=== PATIENT | male | born 1945 | race Caucasian/White ===

== ENCOUNTER → 2017-02-15 | Outpatient (REF) | payer MEDICARE ==
[~2017-02-15] MED LIST: ACTO15TA OR; ALBUTEROL INH; FLON0.05; GLIM1TAB OR; GLUC1000 OR; LEVA500T OR; MICA80TA OR; NIAS10003 OR; SIMV10TA2 OR; azelastine; drisdol; drisdol PO; testosterone
== END ==
LOC: M SFHCLERA 08:35
PROVIDERS: ATTEND Family Medicine
DX: E11.9 Type 2 diabetes mellitus without complications (principal); Z53.8 Procedure and treatment not carried out for other reasons

== ENCOUNTER → 2017-07-18 | Outpatient (REF) | payer MEDICARE | LOC: M SFHCLERA 14:12 | PROVIDERS: ATTEND Family Medicine | DX: R39.9 Unspecified symptoms and signs involving the genitourinary system (principal); N40.1 Benign prostatic hyperplasia with lower urinary tract symptoms; Z12.11 Encounter for screening for malignant neoplasm of colon; E11.9 Type 2 diabetes mellitus without complications; F17.201 Nicotine dependence, unspecified, in remission; E78.5 Hyperlipidemia, unspecified; M79.672 Pain in left foot; H57.8 Other specified disorders of eye and adnexa; G47.34 Idiopathic sleep related nonobstructive alveolar hypoventilation; Z23 Encounter for immunization | CPT/HCPCS: 84153; 90471; 90670; G0463 ==

== ENCOUNTER → 2017-07-31 | Outpatient (CLI) | payer MEDICARE ==
--- NOTE | 2017-07-31 09:21 | REP ---
Abdominal aortic sonography: History: Abdominal aortic aneurysm screen. Tobacco use. Findings: Scanning at the level of the diaphragmatic hiatus shows that the aorta in this segment is obscured from view. At the level of main renal arteries, the aorta is normal in caliber measuring 1.6 cm AP x 1.9 cm transverse. There is no evidence of abdominal aortic aneurysm. Mid aorta dimensions are 1.6 x 1.9 as well. The distal aorta tapers to 1.3 x 1.2 cm in AP by transverse dimension respectively. The right and left common iliac arteries are normal measuring 0.7 cm on the right and 0.8 cm on the left in AP dimension. No periaortic disease is seen. Impression: No evidence of abdominal aortic aneurysm. Signed by Bonifacio Avila MD 07/31/2017 04:15 P
== END ==
LOC: M RAD 06:06
PROVIDERS: ATTEND Family Medicine
DX: F17.201 Nicotine dependence, unspecified, in remission (principal)

== ENCOUNTER → 2017-11-15 | Outpatient (REF) | payer MEDICARE ==
[2017-11-15 17:46] LABS: ESTIMATED AVERAGE GLUCOSE 148 MG/DL (60-110); HEMOGLOBIN A1c 6.8 %
== END ==
LOC: M SFHCLERA 16:22
DX: E11.9 Type 2 diabetes mellitus without complications (principal)
CPT/HCPCS: 83036

== ENCOUNTER → 2018-08-20 | Outpatient (REF) | payer MEDICARE ==
[2018-08-20 17:30] LABS: ALBUMIN 4.1 GM/DL (3.2-5.2); ALT/SGPT 26 U/L (12-78); BILIRUBIN,TOTAL 0.4 MG/DL (0.2-1.0); BLOOD UREA NITROGEN 15 MG/DL (7-18); CALCIUM LEVEL 9.2 MG/DL (8.8-10.2); CARBON DIOXIDE LEVEL 28 MEQ/L (21-32); CHLORIDE LEVEL 104 MEQ/L (98-107); CHOLESTEROL LEVEL 112 MG/DL (<200); CREATININE FOR GFR 0.96 MG/DL (0.70-1.30); GLOMERULAR FILTRATION RATE > 60.0 (>42); GLUCOSE, FASTING 134 MG/DL (70-100); HDL CHOLESTEROL 50 MG/DL (>40); LDL CHOLESTEROL 27 MG/DL (<100); NON-HDL-C 62 MG/DL; POTASSIUM SERUM 5.2 MEQ/L (3.5-5.1); SODIUM LEVEL 139 MEQ/L (136-145); TOTAL PROTEIN 7.5 GM/DL (6.4-8.2); TRIGLYCERIDES LEVEL 173 MG/DL (<150)
[2018-08-20 17:58] LABS: HEMOGLOBIN A1c 7.5 %
[2018-08-20 18:03] LABS: CREATININE, URINE 76.7 MG/DL; MALB URINE SIEMENS 13.8 MG/L; MAU/CREAT RATIO 17.9 MCG/MG (0.0-30.0)
== END ==
LOC: M SFHCLERA 11:20
PROVIDERS: ATTEND Family Medicine
DX: E11.9 Type 2 diabetes mellitus without complications (principal)
CPT/HCPCS: 80053; 80061; 82043; 83036; 90732; G0009; G0463

== ENCOUNTER → 2018-10-22 | Outpatient (REF) | payer MEDICARE ==
[~2018-10-22] MED LIST changes: +ATOR1TAB21 PO; +FLOM0.4C39 PO; +GLIM4TAB PO; +METF10004 PO
[2018-10-22 15:03] LABS: HEMOGLOBIN A1c 6.6 %
== END ==
LOC: M LABDRAW1 13:01
PROVIDERS: ATTEND Family Medicine
DX: E11.9 Type 2 diabetes mellitus without complications (principal)

== ENCOUNTER → 2018-10-31 | Outpatient (CLI) | payer MEDICARE ==
--- NOTE | 2018-10-31 10:29 | REP ---
Clinical: Preoperative assessment for arthroplasty . Comparison: 08/31/2013 . Technique: PA and lateral. Findings: The mediastinum and cardiac silhouette are normal. The lung mcnally are clear and without acute consolidation, effusion, or pneumothorax. The skeletal structures are intact and normal. Impression: 1. No acute cardiopulmonary process. Electronically Signed by Miguel Ángel Au MD 10/31/2018 10:21 A
== END ==
LOC: M RAD 09:59
PROVIDERS: ATTEND Family Medicine
DX: Z01.818 Encounter for other preprocedural examination (principal); M17.12 Unilateral primary osteoarthritis, left knee

== ENCOUNTER → 2018-10-31 | Outpatient (REF) | payer MEDICARE ==
[2018-10-31 16:22] LABS: HEMATOCRIT 44.4 % (42.0-52.0); HEMOGLOBIN 14.9 g/dl (13.5-17.5); MEAN CORPUSCULAR HEMOGLOBIN 33.9 pg (27.0-33.0); MEAN CORPUSCULAR HGB CONC 33.6 g/dl (32.0-36.5); MEAN CORPUSCULAR VOLUME 101.1 fl (80.0-96.0); PLATELET COUNT, AUTOMATED 334 10^3/uL (150-450); RED BLOOD COUNT 4.39 10^6/uL (4.30-6.10); WHITE BLOOD COUNT 6.4 10^3/uL (4.0-10.0)
[2018-10-31 16:26] LABS: ALT/SGPT 25 U/L (12-78); BILIRUBIN,TOTAL 0.3 MG/DL (0.2-1.0); BLOOD UREA NITROGEN 13 MG/DL (7-18); CALCIUM LEVEL 9.3 MG/DL (8.8-10.2); CARBON DIOXIDE LEVEL 27 MEQ/L (21-32); CHLORIDE LEVEL 107 MEQ/L (98-107); CREATININE FOR GFR 0.92 MG/DL (0.70-1.30); GLOMERULAR FILTRATION RATE > 60.0 (>42); GLUCOSE, FASTING 231 MG/DL (70-100); POTASSIUM SERUM 4.8 MEQ/L (3.5-5.1); SODIUM LEVEL 141 MEQ/L (136-145)
[2018-10-31 16:50] LABS: ERYTHROCYTE SEDIMENTATION RATE 3 mm/hr (0-20)
== END ==
LOC: M LABDRAW1 15:54
PROVIDERS: ATTEND Physician Assistant
DX: Z01.818 Encounter for other preprocedural examination (principal); M17.12 Unilateral primary osteoarthritis, left knee

== ENCOUNTER 2018-11-04 06:45 | Inpatient (IN) | payer MEDICARE ==
--- NOTE | 2018-10-31 15:10 | HPE ---
DATE OF ADMISSION: 11/04/2018 HISTORY OF PRESENT ILLNESS: This is a pleasant 72-year-old male with continuing symptomatic left knee osteoarthritis. He has consented for a left total knee arthroplasty per Dr. Kelvin sanford. Medical optimization per Dr. Keating, which is per patient I am still awaiting clearance note. I did see cardiology medical clearance via Dr. Trujillo on 09/26/2018. ALLERGIES: None known to drugs. MEDICATIONS: Include: - aspirin 81 mg tablet delayed release one by mouth daily - atorvastatin calcium 20 mg oral tablet one by mouth daily - glimepiride 4 mg tablet one by mouth daily - metformin HCl 1000 mg oral tablet by mouth twice a day - tamsulosin HCl 0.4 mg oral capsule one by mouth daily - telmisartan 40 mg oral tablet one by mouth daily MEDICAL PROBLEM LIST: 1. Symptomatic left knee osteoarthritis. 2. Chronic obstructive pulmonary disease (COPD). 3. Hyperlipidemia. 4. Type 2 diabetes. PAST SURGICAL HISTORY: 1. Bilateral shoulders. 2. Discectomy L4-5. 3. Bilateral knee arthroscopy. SOCIAL HISTORY: He has never smoked. Denies alcohol use or illicit drugs. FAMILY HISTORY: Positive for non-insulin diabetes, hypercholesteremia, hypertension, heart disease. REVIEW OF SYSTEMS: Denies chest pain, shortness of breath, dyspnea on exertion, fever, chills, malaise, upper respiratory or urinary tract symptoms. PHYSICAL EXAMINATION: VITAL SIGNS: Blood pressure 130/78, pulse 58, temperature 96.4, height 68, weight 176 and 4 ounces, body mass index (BMI) 26.8, respirations 14. I still do not have access to his laboratory work. I was able to see Dr. Trujillo's review of ECG on 09/25/2018. Normal ECG, normal sinus rhythm with a rate of 98 beats per minute as read by himself. He did mention some laboratory work including glucose 133, blood urea nitrogen (BUN) 15, creatinine 1.0, potassium 5.2, A1c 7.5%, cholesterol 112, HDL 50, LDL 27, triglycerides 173, all laboratories were as of 08/20/2018. PHYSICAL EXAMINATION: He is a pleasant white male in no acute distress, alert and oriented times three. Mood and affect are appropriate. He is ambulating without overt antalgia, assistance or favoring. His left knee is not grossly effused, ecchymotic or erythematous. Benign, noninfectious-looking, not hot to touch. Positive medial joint line tenderness to palpation, crepitance through flexion/extension. Range of motion 0 past 100. Patellofemoral joint (PFJ) congruent, static and dynamic. Negative popliteal fossa, mass or pain. Normocephalic. NECK: Supple. Negative jugular venous distention (JVD) or bruits. LUNGS: Clear to auscultation. CHEST: Regular rate and rhythm. Bowel sounds times four, soft, nontender. Bilateral lower extremity skin intact. Benign, noninfectious-looking, not hot to touch. IMPRESSION: 1. Symptomatic left knee osteoarthritis. 2. The patient consented for a left total knee arthroplasty per Dr. Kelvin Sanford. 3. Medical optimization said to be completed with clearance per Dr. Keating which I am still awaiting the note. I did see Dr. Trujillo's cardiac clearance. 4. On-call to operating room (OR) 2 grams IV Kefzol in OR. 5. Sequential compression device (SCD) and thromboembolic-deterrent stockings (TEDS) in OR. 6. Awaiting results of EKG in addition to any remaining necessary laboratories. MTDD
[2018-11-04] VITALS (7 sets, daily range): BP systolic 132–167; BP diastolic 68–94
[~2018-11-04] VITALS: Ht 170.2 cm; Wt 76.0 kg
[~2018-11-04 06:45] MED LIST changes: +BUPIVACAINE LIPOSOME/PF 1.3% 20ML VIAL (13.3MG/ML)(EXPAREL)(C9290 PER1MG) As Ordered ONE; +EPINEPHrine INJ 1 MG/ML 1ML AMP As Ordered ONE; +TRANEXAMIC ACID 100 MG/ML 10ML VIAL As Ordered ONE; +ceFAZolin 1GM INJ (J0690 PER 500MG) As Ordered ONE
[2018-11-04] MEDS ORDERED: LR 1,000 ML IV SCH ×2 (07:00→12:00)
[2018-11-04 07:30] LABS: INR 0.93; PROTHROMBIN TIME 12.6 SECONDS (12.1-14.4)
[2018-11-04 07:37] LABS: GLUCOSE, FASTING 181 MG/DL (70-100)
--- NOTE | 2018-11-04 08:01 | IPN ---
DATE: 11/04/2018 Patient seen and examined. He wished to go ahead with a left total knee arthroplasty. He understands the nature of the risks associated with procedure including, but not limited to, bleeding, infection, damage to nerves, vessels, persistent pain, wear loosening, blood clots, medical problems, among others. A preop clearance was obtained.
[2018-11-04] MEDS ORDERED: fentaNYL 100 MCG/2 ML INJECTION (J3010) As Ordered ONE (08:12)
[2018-11-04] MEDS ORDERED: MIDAZOLAM INJ 2 MG/2 ML VIAL (J2250) As Ordered ONE ×2 (08:12→09:07)
[2018-11-04] MEDS: fentaNYL 100 MCG/2 ML INJECTION (J3010) IV SCH ×2 (08:25→08:30)
[2018-11-04] MEDS: MIDAZOLAM INJ 2 MG/2 ML VIAL (J2250) IV SCH ×2 (08:25→08:30)
[2018-11-04] MEDS: TELMISARTAN 20 MG TAB PO SCH (09:00)
[2018-11-04] MEDS: SENOKOT S TAB PO SCH ×2 (09:00→20:46)
[2018-11-04] MEDS ORDERED: PHENYLEPHRINE INJ 10MG/ML VIAL (J2370) As Ordered ONE (09:07)
[2018-11-04] MEDS ORDERED: PROPOFOL 200 MG/20 ML VIAL As Ordered ONE ×2 (09:07→10:10)
[2018-11-04] MEDS ORDERED: ROPIvacaine 0.5% 30 ML INJECTION (J2795 PER 1MG) ONE (09:09)
[2018-11-04] MEDS ORDERED: LIDOCAINE 1% MDV 20ML VIAL ONE (09:09)
[2018-11-04] MEDS ORDERED: EPINEPHrine 1MG/ML INJ 30ML MD-VIAL ONE (09:09)
[2018-11-04] MEDS ORDERED: dexameTHASONE 10 MG/1 ML VIAL PRES.FREE (J1100) ONE (09:09)
--- NOTE | 2018-11-04 11:44 | REP ---
Left knee two views: There is a total hip arthroplasty with the components tightly applied and in satisfactory positions alignment. Skin dom and intra-articular air identified as a postsurgical change. Electronically Signed by Marco A Rios MD 11/04/2018 11:36 A
[2018-11-04] MEDS ORDERED: ACETAMINOPHEN TAB 650MG DOSE (2X325MG) PO PRN (11:45)
[2018-11-04] MEDS ORDERED: FLEET ENEMA PR PRN (11:45)
[2018-11-04] MEDS ORDERED: MORPHINE 4 MG/ML 1ML VIAL/SYRINGE (J2270) IV PRN ×2 (11:45)
[2018-11-04] MEDS ORDERED: PERCOCET 5MG/325MG TAB PO PRN ×3 (12:00→17:15)
[2018-11-04] MEDS: HumaLOG INSULIN (NovoLOG) PER UNIT SC SCH ×2 (12:00→16:56)
[2018-11-04] MEDS ORDERED: GLUCOSE 4 GM CHEW TABLET PO PRN (12:00)
[2018-11-04] MEDS ORDERED: ONDANSETRON 4MG/2ML VIAL (J2405) IV PRN ×2 (12:00)
[2018-11-04] MEDS ORDERED: fentaNYL 100 MCG/2 ML INJECTION (J3010) IV PRN (12:00)
[2018-11-04] MEDS ORDERED: DEXTROSE 50% 50 ML SYRINGE IV PRN (12:00)
[2018-11-04] MEDS ORDERED: GLUCAGON FOR INJ 1 MG VIAL (J1610) SC PRN (12:00)
[2018-11-04] MEDS ORDERED: MORPHINE 10 MG/ML 1ML VIAL (J2270) IV PRN (12:00)
[2018-11-04 12:25] LABS: HEPATITIS B SURFACE ANTIGEN NEGATIVE (NEGATIVE)
[2018-11-04 12:53] LABS: HEP C VIRUS AB INDEX SOURCE PT < 0.0 INDEX (0.0-0.8)
[2018-11-04] MEDS: LR 1,000 ML IV SCH (13:33)
[2018-11-04] MEDS: TAMSULOSIN 0.4 MG CAP PO SCH (15:01)
--- NOTE | 2018-11-04 16:15 | CR ---
DATE OF CONSULTATION: 11/04/2018 PRIMARY CARE PROVIDER: Dr. Keating REFERRING PHYSICIAN: Dr. Kelvin Garces REASON FOR CONSULTATION: Medical management. CHIEF COMPLAINT: Left knee pain. HISTORY OF THE PRESENT ILLNESS: This is a 73-year-old male patient with underlying medical history of left knee osteoarthritis, questionable chronic obstructive pulmonary disease (COPD), dyslipidemia, type 2 diabetes, hypertension. Patient admitted today under orthopedics for a left total knee replacement. Patient was cleared by Dr. Trujillo for surgery, status post operating room (OR), currently is in post-anesthesia care unit (PACU), comfortable, in no acute distress. Denies smoking. Denies history of sleep apnea. Currently comfortable, in no acute distress. ALLERGIES: No known drug allergies. PAST MEDICAL HISTORY: See above. PAST SURGICAL HISTORY: Bilateral shoulder surgery, L4-L5 discectomy, bilateral knee arthroscopy. SOCIAL HISTORY: The patient never smoked. Denies drinking alcohol or illicit drugs. Currently lives at home with and family. FAMILY HISTORY: Positive for diabetes, dyslipidemia, hypertension, and heart disease. Patient denies a history of heart attack, stroke. REVIEW OF SYSTEMS: Patient currently comfortable. Denies any significant pain. All other review of systems are negative. HOME MEDICATIONS: - Lipitor 20 mg by mouth nightly - glimepiride 4 mg by mouth daily - metformin 1000 mg by mouth twice a day - Flomax 0.4 mg by mouth daily PHYSICAL EXAMINATION: VITAL SIGNS: Temperature 97.3, pulse 79, respirations 16, blood pressure 135/64, pulse oximetry 95% on room air. GENERAL: Patient alert, comfortable, in no acute distress. HEENT: Normocephalic, atraumatic. PULMONARY: Bilaterally clear. CARDIAC: Regular, S1, S2. ABDOMEN: Soft, nontender. Positive bowel sounds. EXTREMITIES: Left knee Gatito wrap in place. Bilateral lower extremities - diminished sensation. Dorsal pedis (DP), posterior tibial (PT) pulses intact. Decreased ability to move status post spinal anesthesia. ASSESSMENT AND PLAN: This is a 73-year-old (dictation cut off) with underlying medical history of hypertension, questionable chronic obstructive pulmonary disease, dyslipidemia, type 2 diabetes, osteoarthritis, admitted under orthopedics for elective left total knee arthroplasty. PROBLEMS: 1. Osteoarthritis, status post elective left knee arthroplasty by Dr. Garces. Pain regimen, perioperative management, deep vein thrombosis (DVT) prophylaxis, bowel regimen as per orthopedics. Patient on Xarelto for DVT prophylaxis. Holding aspirin. 2. Dyslipidemia. Continue statin. 3. BPH. Continue Flomax. 4. Type 2 diabetes. Holding oral medication. Insulin as per protocol. 5. Hypertension. Will monitor blood pressure. Add medication as needed. 6. DVT prophylaxis. Patient on Xarelto as per orthopedics. DISPOSITION: Pending clinical improvement. Further recommendation as per orthopedics.
[2018-11-04] MEDS: PERCOCET 5MG/325MG TAB PO PRN ×2 (18:03→22:31)
[2018-11-04] MEDS ORDERED: ATORVASTATIN 20 MG TAB PO SCH (21:00)
[2018-11-04] MEDS ORDERED: HumaLOG INSULIN (NovoLOG) PER UNIT SC SCH (21:00)
[2018-11-05] MEDS: LR 1,000 ML IV SCH (01:05)
[2018-11-05 02:00] VITALS: BP 130/70
[2018-11-05 06:00] VITALS: BP 152/77
--- NOTE | 2018-11-05 06:28 | RO ---
DATE OF PROCEDURE: 11/04/2018 PREOPERATIVE DIAGNOSIS: Left knee osteoarthritis. POSTOPERATIVE DIAGNOSIS: Left knee osteoarthritis PROCEDURE: Left total knee arthroplasty using a 2 size 4 femur size 6 tibia with a 10 polyethylene 38 patellar button. SURGEON: Dr. Kelvin Garces. ROTARY DRIER: COMPA Frank ANESTHESIA: Spinal ESTIMATED BLOOD LOSS: Less than 50. COMPLICATIONS: None. INDICATIONS: This is a 73-year-old gentleman is had gradually worsening left knee arthritis with some varus and a mild flexion contracture. He failed conservative management and wished to go ahead surgical treatment. He understood the nature of this and the risks associated with it. DESCRIPTION OF PROCEDURE: The patient was taken to operating room and placed in the supine position after spinal anesthesia was induced. The left lower extremity was prepped and draped in usual sterile fashion. A time-out was performed and longitudinal incision was made over the anterior aspect of the left knee. Medial parapatellar arthrotomy was performed and I everted the patella using a canal initiating reamer on the femoral side followed by the intramedullary guide set at 5 degrees of valgus 9 mm cut. This was pinned in place by the customer relations assistant and the distal femoral cut was made. He had a very slight flexion contracture so I elected against taking extra bone. We sized the femur to be a 5 and the pin holes were placed in the appropriate amount of external rotation. Cutting block was then placed and the remaining four cuts were made protecting soft tissues. I then prepared the tibia, taking about 2 off the low side, which was 10 off the high side and appropriate amount of valgus and posterior slope was dialed in and the proximal tibia cut was made. The excess bone was removed. I then removed soft tissue and osteophytes from either side of the knee. I then used the spacer blocks and it was felt that there was a mismatch in flexion/extension. I felt that I could get either a 10 or a 12 12 in extension but it seemed tight in flexion, so I ended up downsizing to a 4. So I replaced the pins in the end of the femur and used the 4 cutting block and re-cut the posterior chamfer and the posterior condyles. I then used the spacer block and was very pleased with the balance, however, the posterior cruciate ligament (PCL) was largely deficient at this point. So I elected to go ahead with the box cut, pinned that in place and made the remaining three cuts. I used the rasp. The placer blocks were then used. I was very pleased. I felt again between a 10 and a 12 most likely both in flexion/extension but the gaps were symmetric. The alignment was excellent. I then prepared the tibia with a size 6 tray that actually fit the best and with this system, we are able to be 2 mm apart in the tibia and the femoral component, so this was drilled broached and the trial components were placed. I was very pleased with a 10 polyethylene, had excellent stability in flexion/extension and excellent alignment stability. I then freehand cut the patella removing about 7 mm of bone, sized it to be a 38. Drill holes were placed and the patella tracked very nicely. I also drilled the holes in the end of the femur. Trial components were removed. The customer relations assistant prepared the bone cement in a modern technique and I irrigated and dried the bony surfaces and placed the Exparel solution in the deep tissues. I then carefully dried everything and cemented on the tibial component followed by the femoral component, removed excess bone cement and placed the polyethylene 10 x 4 rotating platform posterior stabilized. Brought the knee out in extension, cemented on the patella, held this in placed with the clamp, removed excess bone cement and then irrigated copiously. Placed TXA solution deep in the tissues. Closed the deep layer with #1-0 Vicryl suture in interrupted fashion followed by a running Stratafix suture obtaining a watertight closure. Again put the knee through a range of motion. Made sure there was no clicking or catching. Excellent motion was noted. I had irrigated the deep tissues just prior to wound closure. Closed subcu with #2-0 Vicryl. The skin with dom. Sterile dressing was applied and tourniquet was deflated. He was taken to recovery in stable condition. There were no known complications. The customer relations assistant was instrumental in holding retractors, making the distal femoral bone cut under my direct supervision and holding retractors and mixing the bone cement and assisting in wound closure.
[2018-11-05] MEDS: PERCOCET 5MG/325MG TAB PO PRN ×2 (06:43→11:00)
[2018-11-05] MEDS ORDERED: ONDANSETRON 4 MG TAB (S0181) PO PRN (06:45)
[2018-11-05 06:58] LABS: HEMATOCRIT 41.7 % (42.0-52.0); HEMOGLOBIN 14.1 g/dl (13.5-17.5); MEAN CORPUSCULAR HEMOGLOBIN 33.8 pg (27.0-33.0); MEAN CORPUSCULAR HGB CONC 33.8 g/dl (32.0-36.5); PLATELET COUNT, AUTOMATED 312 10^3/uL (150-450); RED BLOOD COUNT 4.17 10^6/uL (4.30-6.10); WHITE BLOOD COUNT 15.1 10^3/uL (4.0-10.0)
[2018-11-05] MEDS: HumaLOG INSULIN (NovoLOG) PER UNIT SC SCH (08:52)
[2018-11-05 08:57] LABS: BLOOD UREA NITROGEN 17 MG/DL (7-18); CALCIUM LEVEL 9.1 MG/DL (8.8-10.2); CARBON DIOXIDE LEVEL 25 MEQ/L (21-32); CHLORIDE LEVEL 104 MEQ/L (98-107); CREATININE FOR GFR 1.09 MG/DL (0.70-1.30); GLOMERULAR FILTRATION RATE > 60.0 (>42); GLUCOSE, FASTING 247 MG/DL (70-100); MAGNESIUM LEVEL 1.7 MG/DL (1.8-2.4); POTASSIUM SERUM 4.7 MEQ/L (3.5-5.1); SODIUM LEVEL 139 MEQ/L (136-145)
[2018-11-05] MEDS ORDERED: PERC5TAB12 PO (08:57)
[2018-11-05] MEDS ORDERED: XARE10TA PO (08:57)
[2018-11-05 09:00] VITALS: BP 152/78
[2018-11-05] MEDS: TELMISARTAN 20 MG TAB PO SCH (09:00)
[2018-11-05] MEDS ORDERED: MIRALAX *UNIT DOSE* 17GM PACKET PO SCH (09:00)
[2018-11-05 10:00] VITALS: BP 150/78
[2018-11-05] MEDS: TAMSULOSIN 0.4 MG CAP PO SCH (10:33)
[2018-11-05] MEDS: SENOKOT S TAB PO SCH (10:33)
--- NOTE | 2018-11-05 13:29 | IPNPDOC ---
Text Note Date of Service The patient was seen on 11/05/18. NOTE Subjective: Patient was seen and examined at the bedside. Currently patient notes that he denies any chest pain, shortness of breath or palpitations. Denies any nausea or vomiting. Denies abdominal pain. Has had the ability to pass flatus, however, has not yet had a bowel movement. Denies any discomfort with urination. Patient has been progressing well with physical therapy and will likely be going home today. Objective: Vitals (See below) General: Lying in bed, no acute distress, comfortable, AAOx3 HEENT: NC, AT CVS: RRR, +S1S2 Lungs: Fair air entry b/l, -w/r/r Abdomen: Soft, ND, NT Extremities: - Edema, - Calf tenderness, L knee in dressing Assessment and plan: Left knee pain - likely 2/2 osteoarthritis - s/p total left knee arthroplasty (POD#1) - Presented to the [facility] for an elective left knee arthroplasty with orthopedic surgery - Pain control, anticoagulation and physical therapy at the direction of orthopedic surgery - Will likely clear physical therapy today and be discharged home Leukocytosis - likely 2/2 reactive etiology, less likely infectious - ROS negative - Remains afebrile and hemodynamically stable - Will continue to hold off on antibiotics HTN - BP remains well controlled - c/w Telmisartan, DLP - c/w Atorvastatin DM2 - c/w ISS COPD - no evidence of exacerbation - c/w inhaled therapy as ordered BPH - c/w Tamsulosin DVT prophylaxis - Anticoagulation as per orthopedic surgery; has been started on Xarelto VS,Fishbone, I+O VS, Fishbone, I+O Laboratory Tests 11/05/18 06:35 Red Blood Count 4.17 L, Mean Corpuscular Volume 100.0 H, Mean Corpuscular Hemoglobin 33.8 H, Mean Corpuscular Hemoglobin Concent 33.8, Red Cell Dis tribution Width 11.9, Calcium Level 9.1 Vital Signs Date Time Temp Pulse Resp B/P (MAP) Pulse Ox O2 Delivery O2 Flow Rate FiO2 11/05/18 11:40 18 11/05/18 09:00 96.8 98 152/78 (102) 97 11/04/18 08:40 2 I&O- Last 24 Hours up to 6 AM 3/5/19 06:00 Intake Total 2425 ml Output Total 2100 ml Balance 325 ml KIMBERLI CHOU MD Nov 05, 2018 13:29
[2018-11-05] MEDS ORDERED: RIVAROXABAN 10 MG TAB (XARELTO) PO SCH (18:00)
== END 2018-11-05 12:20 | disposition home or self-care (01) | DRG 470 ==
LOC: M OR 06:45 → M MS5PR 11:55
PROVIDERS: ADMIT Orthopaedic Surgery; ATTEND Orthopaedic Surgery
PROC: 0SRD0J9 Replacement of Left Knee Joint with Synthetic Substitute, Cemented, Open Approach (ICD-10-PCS; principal; 2018-11-04 09:00)
DX: M17.12 Unilateral primary osteoarthritis, left knee (principal); J44.9 Chronic obstructive pulmonary disease, unspecified; E78.5 Hyperlipidemia, unspecified; E11.9 Type 2 diabetes mellitus without complications; I10 Essential (primary) hypertension; N40.0 Benign prostatic hyperplasia without lower urinary tract symptoms; Z79.84 Long term (current) use of oral hypoglycemic drugs; Z79.899 Other long term (current) drug therapy; Z87.891 Personal history of nicotine dependence

== ENCOUNTER → 2019-03-18 | Outpatient (REF) | payer MEDICARE ==
[~2019-03-18] MED LIST changes: -BUPIVACAINE LIPOSOME/PF 1.3% 20ML VIAL (13.3MG/ML)(EXPAREL)(C9290 PER1MG) As Ordered ONE; -EPINEPHrine INJ 1 MG/ML 1ML AMP As Ordered ONE; +PERC5TAB12 PO; -TRANEXAMIC ACID 100 MG/ML 10ML VIAL As Ordered ONE; +XARE10TA PO; -ceFAZolin 1GM INJ (J0690 PER 500MG) As Ordered ONE
[2019-03-18 16:29] LABS: BASO # 0.1 10^3/uL (0.0-0.2); BASO % 1.7 % (0.0-1.0); EOS # 0.5 10^3/uL (0.0-0.50); EOS % 7.6 % (0.0-3.0); HEMATOCRIT 44.6 % (42.0-52.0); LYMPH # 1.4 10^3/uL (1.5-4.5); MEAN CORPUSCULAR HEMOGLOBIN 32.5 pg (27.0-33.0); MEAN CORPUSCULAR HGB CONC 33.6 g/dl (32.0-36.5); MEAN CORPUSCULAR VOLUME 96.5 fl (80.0-96.0); MONO # 0.6 10^3/uL (0.0-0.8); MONO % 9.9 % (0.0-5.0); NEUTROPHILS # 3.8 10^3/uL (1.8-7.7); NEUTROPHILS % 58.6 % (36.0-66.0); PLATELET COUNT, AUTOMATED 322 10^3/uL (150-450); RED BLOOD COUNT 4.62 10^6/uL (4.30-6.10); WHITE BLOOD COUNT 6.5 10^3/uL (4.0-10.0)
[2019-03-18 16:57] LABS: ALT/SGPT 23 U/L (12-78); BILIRUBIN,TOTAL 0.3 MG/DL (0.2-1.0); BLOOD UREA NITROGEN 17 MG/DL (7-18); CALCIUM LEVEL 9.7 MG/DL (8.8-10.2); CARBON DIOXIDE LEVEL 30 MEQ/L (21-32); CHLORIDE LEVEL 106 MEQ/L (98-107); CHOLESTEROL LEVEL 119 MG/DL (<200); CHOLESTEROL RISK RATIO 2.016 (<5); GLOMERULAR FILTRATION RATE > 60.0 (>42); GLUCOSE, FASTING 134 MG/DL (70-100); HDL CHOLESTEROL 59 MG/DL (>40); LDL CHOLESTEROL 28 MG/DL (<100); NON-HDL-C 60 MG/DL; POTASSIUM SERUM 4.8 MEQ/L (3.5-5.1); SODIUM LEVEL 141 MEQ/L (136-145); TOTAL PROTEIN 7.6 GM/DL (6.4-8.2); TRIGLYCERIDES LEVEL 158 MG/DL (<150)
[2019-03-18 17:04] LABS: MALB URINE SIEMENS 25.2 MG/L
[2019-03-18 18:16] LABS: HEMOGLOBIN A1c 6.6 %
== END ==
LOC: M SFHCLERA 14:42
PROVIDERS: ATTEND Family Medicine
DX: I10 Essential (primary) hypertension (principal); E11.9 Type 2 diabetes mellitus without complications; E78.5 Hyperlipidemia, unspecified
CPT/HCPCS: 80053; 80061; 82043; 83036; 85025; G0463

== ENCOUNTER 2019-07-15 06:39 | Day surgery (SDC) | payer MEDICARE ==
[~2019-07-15] VITALS: Ht 170.2 cm; Wt 76.7 kg
[~2019-07-15 06:39] MED LIST changes: -GLIM4TAB PO; +GLIM4TAB3 PO; +TELM1TAB PO
[2019-07-15] MEDS ORDERED: ECOT81TA5 PO (07:10)
[2019-07-15] MEDS ORDERED: NS 1,000 ML IV ONE (07:15)
[2019-07-15] MEDS ORDERED: PROPOFOL 200 MG/20 ML VIAL As Ordered ONE ×2 (07:42→07:47)
[2019-07-15] MEDS ORDERED: LIDOCAINE 2% INJ 100 MG/5 ML SDV (FOR ANES.) As Ordered ONE (07:42)
--- NOTE | 2019-07-15 08:02 | ROOR ---
Patient Name: Antonio He Procedure Date: 07/15/2019 7:36 AM Date of : 1945 Age: 73 Room: [facility] Gender: Male Note Status: Finalized Procedure: Colonoscopy Indications: Screening for colorectal malignant neoplasm Providers: John Granados MD Referring MD: Marco A ABEL MD Requesting Provider: Medicines: Monitored Anesthesia Care Complications: No immediate complications. Procedure: Pre-Anesthesia Assessment: - Prior to the procedure, a History and Physical was performed, and patient medications and allergies were reviewed. The patient is competent. The risks and benefits of the procedure and the sedation options and risks were discussed with the patient. All questions were answered and informed consent was obtained. Patient identification and proposed procedure were verified by the physician, the nurse and the anesthesiologist in the procedure room. Mental Status Examination: alert and oriented. Airway Examination: normal oropharyngeal airway and neck mobility. Respiratory Examination: clear to auscultation. CV Examination: normal. Prophylactic Antibiotics: The patient does not require prophylactic antibiotics. Prior Anticoagulants: The patient has taken no previous anticoagulant or antiplatelet agents. ASA Grade Assessment: II - A patient with mild systemic disease. After reviewing the risks and benefits, the patient was deemed in satisfactory condition to undergo the procedure. The anesthesia plan was to use monitored anesthesia care (MAC). Immediately prior to administration of medications, the patient was re-assessed for adequacy to receive sedatives. The heart rate, respiratory rate, oxygen saturations, blood pressure, adequacy of pulmonary ventilation, and response to care were monitored throughout the procedure. The physical status of the patient was re-assessed after the procedure. The Colonoscope was introduced through the anus and advanced to the terminal ileum, with identification of the appendiceal orifice and IC valve. The colonoscopy was performed without difficulty. The patient tolerated the procedure well. The quality of the bowel preparation was good. The terminal ileum, ileocecal valve, appendiceal orifice, and rectum were photographed. Scope insertion time was 3 minutes. Scope withdrawal time was 9 minutes. The total duration of the procedure was 12 minutes. Findings: The perianal and digital rectal examinations were normal. The terminal ileum appeared normal. A 4 mm polyp was found in the ascending colon. The polyp was sessile. The polyp was removed with a jumbo cold forceps. Resection and retrieval were complete. Verification of patient identification for the specimen was done by the physician and nurse using the patient's name, date and medical record number. Estimated blood loss was minimal. Multiple small and large-mouthed diverticula were found from sigmoid to ascending colon. There was no evidence of diverticular bleeding. Non-bleeding external and internal hemorrhoids were found during retroflexion. The hemorrhoids were large. Impression: - The examined portion of the ileum was normal. - One 4 mm polyp in the ascending colon, removed with a jumbo cold forceps. Resected and retrieved. - Moderate diverticulosis from sigmoid to ascending colon. There was no evidence of diverticular bleeding. - Non-bleeding external and internal hemorrhoids. Recommendation: - Patient has a contact number available for emergencies. The signs and symptoms of potential delayed complications were discussed with the patient. Return to normal activities tomorrow. Written discharge instructions were provided to the patient. - High fiber diet. - Continue present medications. - Await pathology results. - Repeat colonoscopy in 5-10 years for surveillance based on pathology results and depending on clinical and functional status. - Telephone GI clinic for pathology results in 2 weeks. - Return to primary care physician. John Granados MD John Granados MD 07/15/2019 8:02:26 AM Electronically signed by John Granados MD Number of Addenda: 0 Note Initiated On: 07/15/2019 7:36 AM Estimated Blood Loss: Estimated blood loss was minimal.
[2019-07-15 08:25] VITALS: BP 119/67
== END 2019-07-15 08:35 | disposition home or self-care (01) ==
LOC: M OPP 06:39
PROVIDERS: ATTEND Internal Medicine Gastroenterology
DX: Z12.11 Encounter for screening for malignant neoplasm of colon (principal); K64.8 Other hemorrhoids; D12.2 Benign neoplasm of ascending colon; K57.30 Diverticulosis of large intestine without perforation or abscess without bleeding; I10 Essential (primary) hypertension; E11.9 Type 2 diabetes mellitus without complications; Z79.82 Long term (current) use of aspirin; Z79.84 Long term (current) use of oral hypoglycemic drugs; Z79.899 Other long term (current) drug therapy

== ENCOUNTER → 2019-10-28 | Outpatient (REF) | payer MEDICARE ==
[~2019-10-28] MED LIST changes: +ECOT81TA5 PO; -GLIM4TAB3 PO; +GLIM4TAB5 PO; -TELM1TAB PO; +TELM1TAB35 PO
[2019-10-28 17:37] LABS: BLOOD UREA NITROGEN 16 MG/DL (7-18); CALCIUM LEVEL 9.2 MG/DL (8.8-10.2); CARBON DIOXIDE LEVEL 27 MEQ/L (21-32); CHLORIDE LEVEL 104 MEQ/L (98-107); CREATININE FOR GFR 0.98 MG/DL (0.70-1.30); GLOMERULAR FILTRATION RATE > 60.0 (>42); GLUCOSE, FASTING 166 MG/DL (70-100); POTASSIUM SERUM 4.6 MEQ/L (3.5-5.1); SODIUM LEVEL 138 MEQ/L (136-145)
[2019-10-28 18:01] LABS: HEMOGLOBIN A1c 6.9 %
== END ==
LOC: M SFHCLERA 14:32
PROVIDERS: ATTEND Family Medicine
DX: E11.9 Type 2 diabetes mellitus without complications (principal)

== ENCOUNTER → 2020-09-20 | Outpatient (CLI) | payer MEDICARE | LOC: M LABSMTC 13:32 | PROVIDERS: ATTEND Pediatrics | DX: Z20.822 Contact with and (suspected) exposure to COVID-19 (principal) ==

== ENCOUNTER → 2020-12-08 | Outpatient (REF) | payer MEDICARE ==
[2020-12-08 13:44] LABS: BASO # 0.1 10^3/uL (0.0-0.2); BASO % 1.3 % (0.0-1.0); EOS # 0.4 10^3/uL (0.0-0.5); EOS % 6.9 % (0.0-3.0); HEMATOCRIT 47.8 % (42.0-52.0); HEMOGLOBIN 15.8 g/dl (13.5-17.5); LYMPH # 1.8 10^3/uL (1.5-5.0); LYMPH % 30.2 % (24.0-44.0); MEAN CORPUSCULAR HEMOGLOBIN 32.9 pg (27.0-33.0); MEAN CORPUSCULAR HGB CONC 33.1 g/dl (32.0-36.5); MEAN CORPUSCULAR VOLUME 99.6 fl (80.0-96.0); MONO # 0.6 10^3/uL (0.0-0.8); MONO % 10.5 % (2.0-8.0); NEUTROPHILS # 3.1 10^3/uL (1.5-8.5); NEUTROPHILS % 50.9 % (36.0-66.0); PLATELET COUNT, AUTOMATED 294 10^3/uL (150-450); WHITE BLOOD COUNT 6.1 10^3/uL (4.0-10.0)
[2020-12-08 14:22] LABS: ALBUMIN 4.1 GM/DL (3.2-5.2); ALT/SGPT 41 U/L (12-78); BILIRUBIN,TOTAL 0.4 MG/DL (0.2-1.0); BLOOD UREA NITROGEN 19 MG/DL (7-18); CALCIUM LEVEL 9.5 MG/DL (8.8-10.2); CARBON DIOXIDE LEVEL 27 MEQ/L (21-32); CHLORIDE LEVEL 107 MEQ/L (98-107); CHOLESTEROL LEVEL 108 MG/DL (<200); CREATININE FOR GFR 0.94 MG/DL (0.70-1.30); GLOMERULAR FILTRATION RATE > 60.0 (>42); GLUCOSE, FASTING 192 MG/DL (70-100); HDL CHOLESTEROL 50 MG/DL (>40); LDL CHOLESTEROL 34 MG/DL (<100); NON-HDL-C 58 MG/DL; SODIUM LEVEL 139 MEQ/L (136-145); TOTAL PROTEIN 7.1 GM/DL (6.4-8.2); TRIGLYCERIDES LEVEL 119 MG/DL (<150)
[2020-12-08 14:23] LABS: CREATININE, URINE 82.8 MG/DL; MALB URINE SIEMENS 12.3 MG/L; MAU/CREAT RATIO 14.8 MCG/MG (0.0-30.0)
[2020-12-08 14:32] LABS: HEMOGLOBIN A1c 7.4 %
== END ==
LOC: M SFHCADAM 08:02
PROVIDERS: ATTEND Physician Assistant Medical
DX: E78.2 Mixed hyperlipidemia (principal); I10 Essential (primary) hypertension; E11.9 Type 2 diabetes mellitus without complications

== ENCOUNTER → 2021-06-14 | Outpatient (REF) | payer MEDICARE | LOC: M SFHCADAM 10:48 | PROVIDERS: ATTEND Physician Assistant | DX: J34.89 Other specified disorders of nose and nasal sinuses (principal) | CPT/HCPCS: 87426; G0463; U0003 ==

== ENCOUNTER → 2021-06-21 | Outpatient (REF) | payer MEDICARE ==
[2021-06-21 18:09] LABS: HEMOGLOBIN A1c 7.4 %
[2021-06-21 18:15] LABS: ALBUMIN 3.7 GM/DL (3.2-5.2); BILIRUBIN,TOTAL 0.3 MG/DL (0.2-1.0); CALCIUM LEVEL 9.4 MG/DL (8.8-10.2); CREATININE FOR GFR 1.47 MG/DL (0.70-1.30); GLOMERULAR FILTRATION RATE 49.9 (>42); POTASSIUM SERUM 5.1 MEQ/L (3.5-5.1); THYROID STIMULATING HORMONE 3.65 uIU/ML (0.358-3.740); TOTAL PROTEIN 7.4 GM/DL (6.4-8.2)
== END ==
LOC: M SFHCADAM 15:33
PROVIDERS: ATTEND Physician Assistant Medical
DX: E78.2 Mixed hyperlipidemia (principal); E11.9 Type 2 diabetes mellitus without complications; I10 Essential (primary) hypertension

== ENCOUNTER → 2021-07-01 | Outpatient (REF) | payer MEDICARE ==
[2021-07-01 13:00] LABS: BASO # 0.1 10^3/uL (0.0-0.2); BASO % 1.1 % (0.0-1.0); EOS # 0.4 10^3/uL (0.0-0.5); EOS % 6.1 % (0.0-3.0); HEMATOCRIT 49.1 % (42.0-52.0); HEMOGLOBIN 16.1 g/dl (13.5-17.5); LYMPH # 1.6 10^3/uL (1.5-5.0); MEAN CORPUSCULAR HEMOGLOBIN 32.7 pg (27.0-33.0); MEAN CORPUSCULAR HGB CONC 32.8 g/dl (32.0-36.5); MEAN CORPUSCULAR VOLUME 99.6 fl (80.0-96.0); MONO # 0.7 10^3/uL (0.0-0.8); NEUTROPHILS # 3.8 10^3/uL (1.5-8.5); NEUTROPHILS % 57.5 % (36.0-66.0); PLATELET COUNT, AUTOMATED 320 10^3/uL (150-450); RED BLOOD COUNT 4.93 10^6/uL (4.30-6.10); WHITE BLOOD COUNT 6.6 10^3/uL (4.0-10.0)
[2021-07-01 13:33] LABS: ALBUMIN 3.9 GM/DL (3.2-5.2); ALT/SGPT 53 U/L (12-78); BILIRUBIN,TOTAL 0.3 MG/DL (0.2-1.0); BLOOD UREA NITROGEN 17 MG/DL (7-18); CARBON DIOXIDE LEVEL 27 MEQ/L (21-32); CHLORIDE LEVEL 107 MEQ/L (98-107); CHOLESTEROL LEVEL 120 MG/DL (<200); CHOLESTEROL RISK RATIO 2.352 (<5); CREATININE, URINE 93.3 MG/DL; GLOMERULAR FILTRATION RATE > 60.0 (>42); GLUCOSE, FASTING 161 MG/DL (70-100); HDL CHOLESTEROL 51 MG/DL (>40); LDL CHOLESTEROL 34 MG/DL (<100); MALB URINE SIEMENS 11.3 MG/L; MAU/CREAT RATIO 12.1 MCG/MG (0.0-30.0); NON-HDL-C 69 MG/DL; POTASSIUM SERUM 5.2 MEQ/L (3.5-5.1); SODIUM LEVEL 139 MEQ/L (136-145); TOTAL PROTEIN 7.4 GM/DL (6.4-8.2); TRIGLYCERIDES LEVEL 175 MG/DL (<150)
[2021-07-01 13:44] LABS: HEMOGLOBIN A1c 7.7 %
== END ==
LOC: M SFHCADAM 10:15
PROVIDERS: ATTEND Physician Assistant Medical
DX: E11.9 Type 2 diabetes mellitus without complications (principal); I10 Essential (primary) hypertension

== ENCOUNTER → 2021-12-21 | Outpatient (REF) | payer MEDICARE ==
[2021-12-21 13:18] LABS: BLOOD UREA NITROGEN 16 MG/DL (7-18); CALCIUM LEVEL 10.1 MG/DL (8.8-10.2); CARBON DIOXIDE LEVEL 27 MEQ/L (21-32); CHLORIDE LEVEL 110 MEQ/L (98-107); CREATININE FOR GFR 1.08 MG/DL (0.70-1.30); GLOMERULAR FILTRATION RATE > 60.0 (>42); GLUCOSE, FASTING 239 MG/DL (70-100); POTASSIUM SERUM 5.3 MEQ/L (3.5-5.1); SODIUM LEVEL 141 MEQ/L (136-145)
== END ==
LOC: M SFHCADAM 08:48
PROVIDERS: ATTEND Physician Assistant Medical
DX: E11.9 Type 2 diabetes mellitus without complications (principal)

== ENCOUNTER → 2021-12-23 | Outpatient (REF) | payer MEDICARE ==
[2021-12-23 12:48] LABS: HEMOGLOBIN A1c 8.2 %
[2021-12-23 13:02] LABS: CHOLESTEROL RISK RATIO 2.1 (<5)
== END ==
LOC: M SFHCADAM 11:06
PROVIDERS: ATTEND Physician Assistant Medical
DX: E11.9 Type 2 diabetes mellitus without complications (principal); I10 Essential (primary) hypertension; E78.2 Mixed hyperlipidemia

== ENCOUNTER → 2022-02-02 | Outpatient (CLI) | payer MEDICARE | LOC: M ADAMS 14:48 | PROVIDERS: ATTEND Physician Assistant Medical | DX: Z01.818 Encounter for other preprocedural examination (principal); M47.892 Other spondylosis, cervical region; R91.8 Other nonspecific abnormal finding of lung field ==

== ENCOUNTER → 2022-02-03 | Outpatient (CLI) | payer MEDICARE ==
[~2022-02-03] MED LIST changes: +ISOVUE-370 76% 100ML VIAL As Ordered ONE
== END ==
LOC: M RAD 09:28
PROVIDERS: ATTEND Physician Assistant Medical
DX: R91.1 Solitary pulmonary nodule (principal); R93.89 Abnormal findings on diagnostic imaging of other specified body structures
CPT/HCPCS: 71260; Q9967

== ENCOUNTER → 2022-02-05 | Outpatient (CLI) | payer MEDICARE ==
[~2022-02-05] MED LIST changes: -ISOVUE-370 76% 100ML VIAL As Ordered ONE
== END ==
LOC: M LABSMTC 09:27
PROVIDERS: ATTEND Anesthesiology
DX: Z01.812 Encounter for preprocedural laboratory examination (principal); Z20.822 Contact with and (suspected) exposure to COVID-19

== ENCOUNTER 2022-02-07 10:13 | Outpatient (CLI) | payer MEDICARE ==
[2022-02-07 13:10] VITALS: BP 118/70
== END 2022-02-07 13:18 | disposition home or self-care (01) ==
LOC: M RAD 10:13
PROVIDERS: ATTEND Physician Assistant
DX: M50.21 Other cervical disc displacement, high cervical region (principal); M50.223 Other cervical disc displacement at C6-C7 level

== ENCOUNTER → 2022-08-09 | Outpatient (REF) | payer MEDICARE ==
[2022-08-09 13:35] LABS: ALBUMIN 4.2 G/DL (3.2-5.2); ALKALINE PHOSPHATASE 63 U/L (46-116); ALT/SGPT 34 U/L (7.0-40); AST/SGOT 23 U/L (<34); BILIRUBIN,TOTAL 0.4 MG/DL (0.3-1.2); BLOOD UREA NITROGEN 17 MG/DL (9-23); CALCIUM LEVEL 9.9 MG/DL (8.3-10.6); CARBON DIOXIDE LEVEL 24 MMOL/L (20-31); CHLORIDE LEVEL 106 MMOL/L (98-107); CHOLESTEROL LEVEL 98 MG/DL (<200); CHOLESTEROL RISK RATIO 2.21 (<5); CREATININE FOR GFR 0.87 MG/DL (0.70-1.30); GLOMERULAR FILTRATION RATE > 60.0 (>42); GLUCOSE, FASTING 166 MG/DL (74-106); HDL CHOLESTEROL 44.3 MG/DL (>40); LDL CHOLESTEROL 38.7 MG/DL (<100); NON-HDL-C 54 MG/DL; POTASSIUM SERUM 5.1 MMOL/L (3.5-5.1); SODIUM LEVEL 139 MMOL/L (136-145); TOTAL PROTEIN 7.3 G/DL (5.7-8.2); TRIGLYCERIDES LEVEL 75 MG/DL (<150)
[2022-08-09 13:37] LABS: THYROID STIMULATING HORMONE 4.513 uIU/ML (0.55-4.78)
[2022-08-09 13:49] LABS: MAU/CREAT RATIO 11.2 MCG/MG (0.0-30.0)
[2022-08-09 13:57] LABS: BASO # 0.1 10^3/uL (0.0-0.2); BASO % 1.1 % (0.0-1.0); EOS # 0.3 10^3/uL (0.0-0.5); EOS % 5.4 % (0.0-3.0); HEMATOCRIT 48.2 % (42.0-52.0); HEMOGLOBIN 15.7 g/dl (13.5-17.5); LYMPH # 1.7 10^3/uL (1.5-5.0); LYMPH % 27.6 % (24.0-44.0); MEAN CORPUSCULAR HEMOGLOBIN 32.4 pg (27.0-33.0); MEAN CORPUSCULAR HGB CONC 32.6 g/dl (32.0-36.5); MEAN CORPUSCULAR VOLUME 99.4 fl (80.0-96.0); MONO # 0.5 10^3/uL (0.0-0.8); MONO % 8.9 % (2.0-8.0); NEUTROPHILS # 3.5 10^3/uL (1.5-8.5); NEUTROPHILS % 56.8 % (36.0-66.0); PLATELET COUNT, AUTOMATED 314 10^3/uL (150-450); RED BLOOD COUNT 4.85 10^6/uL (4.30-6.10); WHITE BLOOD COUNT 6.1 10^3/uL (4.0-10.0)
[2022-08-09 14:45] LABS: HEMOGLOBIN A1c 7.2 % (4.0-6.0)
== END ==
LOC: M SFHCADAM 10:11
PROVIDERS: ATTEND Physician Assistant Medical
DX: E11.9 Type 2 diabetes mellitus without complications (principal); I10 Essential (primary) hypertension; E78.2 Mixed hyperlipidemia

== ENCOUNTER → 2022-12-28 | Outpatient (REF) | payer MEDICARE | LOC: M SFHCADAM 08:01 | PROVIDERS: ATTEND Physician Assistant Medical | DX: R39.12 Poor urinary stream (principal) ==

== ENCOUNTER → 2023-04-04 | Outpatient (REF) | payer MEDICARE ==
[2023-04-04 15:06] LABS: BASO # 0.1 10^3/uL (0.0-0.2); BASO % 1.3 % (0.0-1.0); EOS # 0.3 10^3/uL (0.0-0.5); EOS % 5.2 % (0.0-3.0); HEMATOCRIT 47.1 % (42.0-52.0); HEMOGLOBIN 15.3 g/dl (13.5-17.5); LYMPH # 1.6 10^3/uL (1.5-5.0); LYMPH % 29.2 % (24.0-44.0); MEAN CORPUSCULAR HEMOGLOBIN 33.2 pg (27.0-33.0); MEAN CORPUSCULAR HGB CONC 32.5 g/dl (32.0-36.5); MEAN CORPUSCULAR VOLUME 102.2 fl (80.0-96.0); MONO # 0.5 10^3/uL (0.0-0.8); MONO % 9.5 % (2.0-8.0); NEUTROPHILS # 2.9 10^3/uL (1.5-8.5); NEUTROPHILS % 54.6 % (36.0-66.0); PLATELET COUNT, AUTOMATED 270 10^3/uL (150-450); RED BLOOD COUNT 4.61 10^6/uL (4.30-6.10); WHITE BLOOD COUNT 5.4 10^3/uL (4.0-10.0)
[2023-04-04 15:30] LABS: HEMOGLOBIN A1c 7.7 % (4.0-6.0)
[2023-04-04 16:10] LABS: ALBUMIN 4.1 G/DL (3.2-5.2); ALKALINE PHOSPHATASE 66 U/L (46-116); ALT/SGPT 25 U/L (7.0-40); AST/SGOT 15 U/L (<34); BILIRUBIN,TOTAL 0.4 MG/DL (0.3-1.2); BLOOD UREA NITROGEN 16 MG/DL (9-23); CALCIUM LEVEL 9.4 MG/DL (8.3-10.6); CARBON DIOXIDE LEVEL 24 MMOL/L (20-31); CHLORIDE LEVEL 107 MMOL/L (98-107); CHOLESTEROL LEVEL 101 MG/DL (<200); CHOLESTEROL RISK RATIO 2.06 (<5); CREATININE FOR GFR 0.86 MG/DL (0.70-1.30); GLOMERULAR FILTRATION RATE > 60.0 (>42); GLUCOSE, FASTING 137 MG/DL (74-106); HDL CHOLESTEROL 48.8 MG/DL (>40); LDL CHOLESTEROL 32.4 MG/DL (<100); NON-HDL-C 52.2 MG/DL; POTASSIUM SERUM 4.8 MMOL/L (3.5-5.1); SODIUM LEVEL 140 MMOL/L (136-145); THYROID STIMULATING HORMONE 3.353 uIU/ML (0.55-4.78); TRIGLYCERIDES LEVEL 99 MG/DL (<150)
== END ==
LOC: M SFHCADAM 09:25
PROVIDERS: ATTEND Physician Assistant Medical
DX: E11.9 Type 2 diabetes mellitus without complications (principal); I10 Essential (primary) hypertension; E78.2 Mixed hyperlipidemia

== ENCOUNTER → 2023-07-31 | Outpatient (REF) | payer MEDICARE | LOC: M LAB REF 14:40 | PROVIDERS: ATTEND Otolaryngology | DX: J36 Peritonsillar abscess (principal) ==

== ENCOUNTER → 2023-10-05 | Outpatient (REF) | payer MEDICARE ==
[2023-10-05 13:48] LABS: ALBUMIN 3.9 G/DL (3.2-5.2); ALKALINE PHOSPHATASE 71 U/L (46-116); ALT/SGPT 34 U/L (7.0-40); AST/SGOT 20 U/L (<34); BILIRUBIN,TOTAL 0.4 MG/DL (0.3-1.2); BLOOD UREA NITROGEN 18 MG/DL (9-23); CALCIUM LEVEL 9.7 MG/DL (8.3-10.6); CARBON DIOXIDE LEVEL 26 MMOL/L (20-31); CHLORIDE LEVEL 108 MMOL/L (98-107); CHOLESTEROL LEVEL 105 MG/DL (<200); CHOLESTEROL RISK RATIO 2.47 (<5); CREATININE FOR GFR 0.93 MG/DL (0.70-1.30); GLOMERULAR FILTRATION RATE > 60.0 (>42); GLUCOSE, FASTING 158 MG/DL (74-106); HDL CHOLESTEROL 42.4 MG/DL (>40); LDL CHOLESTEROL 38.2 MG/DL (<100); NON-HDL-C 62.6 MG/DL; SODIUM LEVEL 140 MMOL/L (136-145); THYROID STIMULATING HORMONE 5.883 uIU/ML (0.55-4.78); TRIGLYCERIDES LEVEL 122 MG/DL (<150)
[2023-10-05 13:54] LABS: HEMOGLOBIN A1c 8.8 % (4.0-6.0)
== END ==
LOC: M SFHCADAM 07:55
PROVIDERS: ATTEND Physician Assistant Medical
DX: I10 Essential (primary) hypertension (principal); E11.9 Type 2 diabetes mellitus without complications; E78.2 Mixed hyperlipidemia

== ENCOUNTER → 2023-11-14 | Outpatient (REF) | payer MEDICARE ==
[2023-11-14 16:19] LABS: FREE T4 0.92 NG/DL (0.89-1.76); THYROID STIMULATING HORMONE 4.904 uIU/ML (0.55-4.78)
== END ==
LOC: M SFHCADAM 07:57
PROVIDERS: ATTEND Physician Assistant Medical
DX: R79.89 Other specified abnormal findings of blood chemistry (principal); Z79.899 Other long term (current) drug therapy

== ENCOUNTER → 2024-06-09 | Outpatient (REF) | payer MEDICARE ==
[2024-06-09 15:36] LABS: ALBUMIN 3.9 G/DL (3.2-5.2); ALKALINE PHOSPHATASE 65 U/L (46-116); ALT/SGPT 23 U/L (7.0-40); AST/SGOT 14 U/L (<34); BILIRUBIN,TOTAL 0.6 MG/DL (0.3-1.2); BLOOD UREA NITROGEN 16 MG/DL (9-23); CALCIUM LEVEL 9.8 MG/DL (8.3-10.6); CARBON DIOXIDE LEVEL 26 MMOL/L (20-31); CHLORIDE LEVEL 105 MMOL/L (98-107); CHOLESTEROL LEVEL 90 MG/DL (<200); CHOLESTEROL RISK RATIO 2.23 (<5); CREATININE FOR GFR 0.97 MG/DL (0.70-1.30); GLOMERULAR FILTRATION RATE > 60.0 (>42); GLUCOSE, FASTING 132 MG/DL (74-106); HDL CHOLESTEROL 40.2 MG/DL (>40); LDL CHOLESTEROL 26.6 MG/DL (<100); NON-HDL-C 49.8 MG/DL; SODIUM LEVEL 139 MMOL/L (136-145); TOTAL PROTEIN 7.3 G/DL (5.7-8.2); TRIGLYCERIDES LEVEL 116 MG/DL (<150)
[2024-06-09 15:37] LABS: THYROID STIMULATING HORMONE 4.804 uIU/ML (0.55-4.78)
== END ==
LOC: M SFHCADAM 08:02
PROVIDERS: ATTEND Physician Assistant Medical
DX: R79.89 Other specified abnormal findings of blood chemistry (principal); Z79.899 Other long term (current) drug therapy

== ENCOUNTER → 2024-07-02 | Outpatient (CLI) | payer MEDICARE | LOC: M PLAIMG 12:21 | PROVIDERS: ATTEND Physician Assistant | DX: I49.8 Other specified cardiac arrhythmias (principal); H90.41 Sensorineural hearing loss, unilateral, right ear, with unrestricted hearing on the contralateral side; H93.11 Tinnitus, right ear; Z53.9 Procedure and treatment not carried out, unspecified reason ==

== ENCOUNTER → 2024-07-15 | Outpatient (REF) | payer MEDICARE | LOC: M SFHCADAM 13:52 | PROVIDERS: ATTEND Physician Assistant | DX: Z12.5 Encounter for screening for malignant neoplasm of prostate (principal) ==

== ENCOUNTER → 2024-07-22 | Outpatient (CLI) | payer MEDICARE | LOC: M ADAMS 14:30 | PROVIDERS: ATTEND Physician Assistant Medical | DX: Z01.818 Encounter for other preprocedural examination (principal); H90.11 Conductive hearing loss, unilateral, right ear, with unrestricted hearing on the contralateral side; H93.11 Tinnitus, right ear ==

== ENCOUNTER → 2024-07-22 | Outpatient (REF) | payer MEDICARE ==
[2024-07-22 18:07] LABS: BASO # 0.1 10^3/uL (0.0-0.2); BASO % 0.8 % (0.0-1.0); EOS # 0.3 10^3/uL (0.0-0.5); EOS % 3.5 % (0.0-3.0); HEMATOCRIT 45.5 % (42.0-52.0); LYMPH # 1.6 10^3/uL (1.5-5.0); LYMPH % 21.4 % (24.0-44.0); MEAN CORPUSCULAR HEMOGLOBIN 33.1 pg (27.0-33.0); MEAN CORPUSCULAR VOLUME 100.4 fl (80.0-96.0); MONO # 0.6 10^3/uL (0.0-0.8); MONO % 8.2 % (2.0-8.0); NEUTROPHILS # 4.9 10^3/uL (1.5-8.5); NEUTROPHILS % 65.8 % (36.0-66.0); PLATELET COUNT, AUTOMATED 289 10^3/uL (150-450); RED BLOOD COUNT 4.53 10^6/uL (4.30-6.10); WHITE BLOOD COUNT 7.4 10^3/uL (4.0-10.0)
[2024-07-22 18:08] LABS: BLOOD UREA NITROGEN 14 MG/DL (9-23); CALCIUM LEVEL 9.9 MG/DL (8.3-10.6); CARBON DIOXIDE LEVEL 27 MMOL/L (20-31); CHLORIDE LEVEL 107 MMOL/L (98-107); CREATININE FOR GFR 0.95 MG/DL (0.70-1.30); GLOMERULAR FILTRATION RATE > 60.0 (>42); GLUCOSE, FASTING 199 MG/DL (74-106); POTASSIUM SERUM 4.6 MMOL/L (3.5-5.1); SODIUM LEVEL 143 MMOL/L (136-145)
== END ==
LOC: M SFHCADAM 14:27
PROVIDERS: ATTEND Physician Assistant Medical
DX: Z01.818 Encounter for other preprocedural examination (principal); H90.11 Conductive hearing loss, unilateral, right ear, with unrestricted hearing on the contralateral side; H93.11 Tinnitus, right ear

== ENCOUNTER → 2024-08-19 | Outpatient (CLI) | payer MEDICARE ==
[~2024-08-19] MED LIST changes: +PROHANCE 279.3MG/ML 15ML VIAL As Ordered ONE; +PROHANCE 279.3MG/ML 5ML VIAL As Ordered ONE
[2024-08-19 07:50] VITALS: TEMP 98.1
[2024-08-19 10:20] VITALS: BP 147/63; O2SAT 94
== END ==
LOC: M RADPRO 07:34
PROVIDERS: ATTEND Physician Assistant
DX: H90.41 Sensorineural hearing loss, unilateral, right ear, with unrestricted hearing on the contralateral side (principal); H93.11 Tinnitus, right ear; F40.240 Claustrophobia; H90.11 Conductive hearing loss, unilateral, right ear, with unrestricted hearing on the contralateral side
CPT/HCPCS: 70553; A9576

== ENCOUNTER → 2024-12-11 | Outpatient (CLI) | payer MEDICARE ==
[~2024-12-11] MED LIST changes: -PROHANCE 279.3MG/ML 15ML VIAL As Ordered ONE; -PROHANCE 279.3MG/ML 5ML VIAL As Ordered ONE
== END ==
LOC: M CARPUL 16:22
PROVIDERS: ATTEND Registered Nurse
DX: R94.31 Abnormal electrocardiogram [ECG] [EKG] (principal); R06.02 Shortness of breath

== ENCOUNTER → 2024-12-16 | Outpatient (REF) | payer MEDICARE ==
[2024-12-16 18:10] LABS: BASO # 0.1 10^3/uL (0.0-0.2); EOS # 0.3 10^3/uL (0.0-0.5); EOS % 3.5 % (0.0-3.0); HEMATOCRIT 45.4 % (42.0-52.0); HEMOGLOBIN 14.8 g/dl (13.5-17.5); LYMPH # 1.9 10^3/uL (1.5-5.0); LYMPH % 25.4 % (24.0-44.0); MEAN CORPUSCULAR HEMOGLOBIN 32.7 pg (27.0-33.0); MEAN CORPUSCULAR HGB CONC 32.6 g/dl (32.0-36.5); MEAN CORPUSCULAR VOLUME 100.4 fl (80.0-96.0); MONO # 0.7 10^3/uL (0.0-0.8); NEUTROPHILS # 4.5 10^3/uL (1.5-8.5); NEUTROPHILS % 60.8 % (36.0-66.0); PLATELET COUNT, AUTOMATED 286 10^3/uL (150-450); RED BLOOD COUNT 4.52 10^6/uL (4.30-6.10); WHITE BLOOD COUNT 7.3 10^3/uL (4.0-10.0)
[2024-12-16 18:15] LABS: ALBUMIN 4.1 G/DL (3.2-5.2); BILIRUBIN,TOTAL 0.4 MG/DL (0.3-1.2); CALCIUM LEVEL 9.9 MG/DL (8.3-10.6); CREATININE FOR GFR 0.89 MG/DL (0.70-1.30); GLOMERULAR FILTRATION RATE 87.7 (>42); TOTAL PROTEIN 7.4 G/DL (5.7-8.2)
== END ==
LOC: M LABDRWAD 17:29
PROVIDERS: ATTEND Registered Nurse
DX: R94.31 Abnormal electrocardiogram [ECG] [EKG] (principal); R06.02 Shortness of breath

== ENCOUNTER → 2025-01-09 | Outpatient (CLI) | payer MEDICARE ==
[~2025-01-09] MED LIST changes: -FLOM0.4C39 PO; +TAMS-18 PO
== END ==
LOC: M CARPUL 12:07
PROVIDERS: ATTEND Registered Nurse
DX: R94.31 Abnormal electrocardiogram [ECG] [EKG] (principal); I49.1 Atrial premature depolarization; R06.02 Shortness of breath

== ENCOUNTER → 2025-08-04 | Outpatient (REF) | payer MEDICARE ==
[2025-08-06 12:21] LABS: PSA % FREE 52.0 % (calc) (>25); PSA FREE 2.3 ng/mL; PSA TOTAL 4.4 ng/mL (< OR = 4.0)
== END ==
LOC: M LABDRWAD 14:15
PROVIDERS: ATTEND Physician Assistant
DX: R97.20 Elevated prostate specific antigen [PSA] (principal)

== ENCOUNTER → 2025-08-04 | Outpatient (REF) | payer MEDICARE ==
[2025-08-04 14:12] LABS: BASO # 0.1 10^3/uL (0.0-0.2); BASO % 1.5 % (0.0-1.0); EOS # 0.5 10^3/uL (0.0-0.5); EOS % 7.2 % (0.0-3.0); LYMPH # 1.7 10^3/uL (1.5-5.0); LYMPH % 25.6 % (24.0-44.0); MONO # 0.7 10^3/uL (0.0-0.8); MONO % 11.1 % (2.0-8.0); NEUTROPHILS # 3.6 10^3/uL (1.5-8.5); NEUTROPHILS % 54.3 % (36.0-66.0); PLATELET COUNT, AUTOMATED 306 10^3/uL (150-450)
[2025-08-04 14:31] LABS: ESTIMATED AVERAGE GLUCOSE 160.0 MG/DL (60-110)
[2025-08-04 14:44] LABS: CREATININE, URINE 125.9 MG/DL; MALB URINE SIEMENS 16.0 MG/L; MAU/CREAT RATIO 12.7 MCG/MG (0.0-30.0)
[2025-08-04 14:47] LABS: ALT/SGPT 28.0 U/L (7.0-40); AST/SGOT 20.0 U/L (<34); CALCIUM LEVEL 9.1 MG/DL (8.3-10.6); CARBON DIOXIDE LEVEL 27.0 MMOL/L (20-31); CHLORIDE LEVEL 107.0 MMOL/L (98-107); CHOLESTEROL LEVEL 107.0 MG/DL (<200); CHOLESTEROL RISK RATIO 2.67 (<5); CREATININE FOR GFR 0.96 MG/DL (0.70-1.30); GLOMERULAR FILTRATION RATE 80.9 (>42); IRON (FE) 73.0 UG/DL (65-175); LDL CHOLESTEROL 24.4 MG/DL (<100); NON-HDL-C 67.0 MG/DL; PERCENT SATURATION 21.6 % (19.7-50.0); POTASSIUM SERUM 5.5 MMOL/L (3.5-5.1); SODIUM LEVEL 143.0 MMOL/L (136-145); TRIGLYCERIDES LEVEL 213.0 MG/DL (<150)
[2025-08-04 14:48] LABS: TOTAL 25(OH) VITAMIN D 21.9 NG/ML (20.0-100.0)
[2025-08-04 14:49] LABS: FREE T4 0.96 NG/DL (0.89-1.76); VITAMIN B12 LEVEL 286.0 PG/ML (211-911)
== END ==
LOC: M SFHCADAM 07:30
PROVIDERS: ATTEND Physician Assistant Medical
DX: E11.9 Type 2 diabetes mellitus without complications (principal); E78.2 Mixed hyperlipidemia; I10 Essential (primary) hypertension; R79.89 Other specified abnormal findings of blood chemistry; Z79.899 Other long term (current) drug therapy; R97.20 Elevated prostate specific antigen [PSA]